=== PATIENT | female | born 1985 | race Caucasian/White ===

== ENCOUNTER 2020-11-10 19:45 | Emergency (ER) | payer OTHER ==
[~2020-11-10 19:45] MED LIST: AMOXICILLIN500 MG PO
[2020-11-10 21:26] LABS: BASOPHIL 0.5 % (0-2); EOSINOPHIL 1.7 % (0-5); HCT 41.4 % (37.0-47.0); HGB 13.7 g/dl (12.5-16.0); LYMPHOCYTE 19.7 % (15-48); MCH 31.9 pg (25.0-31.0); MCHC 33.1 g/dL (32.0-36.0); MCV 96.5 fL (78.0-100.0); MONOCYTE 9.1 % (0-12); NEUTROPHIL 68.5 % (41-80); NRBC 0; PLT 209 K/uL (150-400); RBC 4.29 M/uL (4.20-5.40); RDW 13.4 % (11.5-14.0); WBC 12.5 K/uL (4.0-10.5)
[2020-11-10 21:33] LABS: HCG (URINE) SCREEN NEGATIVE (NEGATIVE)
[2020-11-10 21:34] LABS: BILIRUBIN NEGATIVE (NEGATIVE); BLOOD TRACE-INTACT Ery/uL (NEGATIVE); CLARITY CLOUDY (CLEAR); COLOR YELLOW (YELLOW); GLUCOSE (U) NORMAL (NORMAL); LEUKOCYTES NEGATIVE Leu/uL (NEGATIVE); NITRITE NEGATIVE (NEGATIVE); PROTEIN NEGATIVE (NEGATIVE); UROBILINOGEN 0.2 mg/dL (0.2-1.0); pH 8.5 (5.0-9.0)
[2020-11-10 21:38] LABS: AMORPHOUS URATES CRYSTALS MODERATE; BACTERIA TRACE; URINARY RBC RARE
[2020-11-10 21:44] LABS: ALBUMIN 3.2 g/dL (3.4-5.0); BILIRUBIN - TOTAL 0.2 mg/dL (0.2-1.0); BUN/CREAT RATIO (CALC) 12.9 RATIO; CREATININE 0.7 mg/dL (0.51-0.95); GLOBULIN (CALCULATION) 3.5 g/dL; POTASSIUM 4.2 mmol/L (3.5-5.1); TOTAL PROTEIN 6.7 g/dL (6.4-8.2)
== END 2020-11-10 23:35 | disposition home or self-care (01) ==
LOC: FER 19:45
PROVIDERS: Student in an Organized Health Care Education/Training Program
DX: K80.20 Calculus of gallbladder without cholecystitis without obstruction (principal); K42.9 Umbilical hernia without obstruction or gangrene; F17.210 Nicotine dependence, cigarettes, uncomplicated
CPT/HCPCS: 36415; 80053; 81001; 83690; 84484; 84703; 85025; Q9967

== ENCOUNTER 2021-05-09 18:43 | Emergency (ER) | payer OTHER ==
[2021-05-09 19:55] LABS: BASOPHIL 0.4 % (0-2); EOSINOPHIL 1.9 % (0-5); HCT 41.8 % (37.0-47.0); HGB 13.6 g/dl (12.5-16.0); LYMPHOCYTE 21.9 % (15-48); MCH 32.1 pg (25.0-31.0); MCHC 32.5 g/dL (32.0-36.0); MCV 98.6 fL (78.0-100.0); MONOCYTE 7.7 % (0-12); MPV 10.8 fL (6.0-9.5); NEUTROPHIL 67.5 % (41-80); NRBC 0; PLT 260 K/uL (150-400); RBC 4.24 M/uL (4.20-5.40); RDW 14.2 % (11.5-14.0)
[2021-05-09 20:05] LABS: ALBUMIN 3.3 g/dL (3.4-5.0); BILIRUBIN - TOTAL 0.3 mg/dL (0.2-1.0); CREATININE 0.89 mg/dL (0.51-0.95); GLOBULIN (CALCULATION) 4.2 g/dL; TOTAL PROTEIN 7.5 g/dL (6.4-8.2)
[2021-05-09 20:06] LABS: BILIRUBIN NEGATIVE (NEGATIVE); BLOOD TRACE-INTACT Ery/uL (NEGATIVE); CLARITY CLEAR (CLEAR); COLOR YELLOW (YELLOW); GLUCOSE (U) NORMAL (NORMAL); LEUKOCYTES 1+ Leu/uL (NEGATIVE); NITRITE NEGATIVE (NEGATIVE); PROTEIN NEGATIVE (NEGATIVE); UROBILINOGEN 0.2 mg/dL (0.2-1.0)
[2021-05-09 20:14] LABS: BACTERIA TRACE; SQUAMOUS EPITHELIAL CELLS 20-50; URINARY RBC RARE
== END 2021-05-09 22:17 | disposition home or self-care (01) ==
LOC: FER 18:43
PROVIDERS: Emergency Medicine
DX: R10.10 Upper abdominal pain, unspecified (principal); F17.210 Nicotine dependence, cigarettes, uncomplicated
CPT/HCPCS: 36415; 80053; 81001; 83690; 85025; J7030; Q9967

== ENCOUNTER 2022-01-31 06:28 | Day surgery (SDCO) | payer OTHER ==
[~2022-01-31] VITALS: Ht 170.2 cm; Wt 150.3 kg
[2022-01-31 07:10] LABS: BASOPHIL 0.5 % (0-2); EOSINOPHIL 1.1 % (0-5); HCT 40.9 % (37.0-47.0); HGB 13.4 g/dl (12.5-16.0); LYMPHOCYTE 15.6 % (15-48); MCHC 32.8 g/dL (32.0-36.0); MCV 97.6 fL (78.0-100.0); MONOCYTE 6.7 % (0-12); MPV 10.4 fL (6.0-9.5); NEUTROPHIL 75.4 % (41-80); NRBC 0; PLT 246 K/uL (150-400); RBC 4.19 M/uL (4.20-5.40); WBC 12.2 K/uL (4.0-10.5)
[2022-01-31 07:31] LABS: ALBUMIN 2.9 g/dL (3.4-5.0); BILIRUBIN - TOTAL 0.4 mg/dL (0.2-1.0); BUN/CREAT RATIO (CALC) 7.7 RATIO; CREATININE 0.91 mg/dL (0.51-0.95); GLOBULIN (CALCULATION) 4.2 g/dL; POTASSIUM 3.5 mmol/L (3.5-5.1); TOTAL PROTEIN 7.1 g/dL (6.4-8.2)
[2022-01-31 10:20] LABS: INR 1.05 (0.9-1.2); PROTHROMBIN TIME 13.1 SECONDS (11.8-13.4); PTT 28.6 SECONDS (24.4-34.7)
[2022-01-31 11:51] LABS: CORONAVIRUS 2019 SARS-COV-2 NEGATIVE (NEGATIVE); INFLUENZA A NAA NEGATIVE (NEGATIVE)
[2022-01-31] MEDS ORDERED: ELIQUIS5 MG PO (13:23)
[2022-01-31] MEDS ORDERED: WELLBUTRIN XL150 MG PO (13:33)
[2022-01-31] MEDS ORDERED: BUSPAR5 MG PO (13:34)
[2022-01-31] MEDS ORDERED: VITAMIN D PO (13:39)
[2022-01-31] MEDS ORDERED: STOOL SOFTENER100 MG PO (13:40)
[2022-01-31] MEDS ORDERED: B12 (13:42)
[2022-01-31] MEDS ORDERED: AMOX TR-K CLV1 EAC4 PO (18:15)
[2022-01-31] MEDS ORDERED: VENTOLIN (2.5 MG/0.5 NEB (18:15)
[2022-01-31] MEDS ORDERED: ZPAK PO (18:15)
[2022-01-31] MEDS ORDERED: MUCINEX1200 MG PO (18:15)
== END 2022-01-31 19:00 | disposition home or self-care (01) ==
LOC: FER 06:28 → FTCU 09:42
PROVIDERS: Emergency Medicine; ADMIT Internal Medicine
DX: I26.99 Other pulmonary embolism without acute cor pulmonale (principal); A41.9 Sepsis, unspecified organism; J18.9 Pneumonia, unspecified organism; E66.01 Morbid (severe) obesity due to excess calories; I10 Essential (primary) hypertension; J45.909 Unspecified asthma, uncomplicated; Z72.0 Tobacco use; Z20.822 Contact with and (suspected) exposure to COVID-19; Z90.49 Acquired absence of other specified parts of digestive tract
CPT/HCPCS: 36415; 71045; 71275; 80053; 84145; 84484; 85025; 85379; 85610; 85730; 93005; 94010; G0378; J0456; J0696; J1644; J1885; J7050; Q9967; U0002